=== PATIENT | female | born 1985 | race Caucasian/White ===

== ENCOUNTER 2017-01-08 12:38 | Emergency (ER) | payer OTHER ==
[2017-01-08 14:30] VITALS: BP 135/88
== END 2017-01-08 15:20 | disposition left against medical advice (07) ==
LOC: EDBD → ED 12:38
DX: R10.9 Unspecified abdominal pain (principal); Z53.21 Procedure and treatment not carried out due to patient leaving prior to being seen by health care provider

== ENCOUNTER 2017-02-19 11:52 | Emergency (ER) | payer OTHER ==
[2017-02-19] MEDS ORDERED: NS 0.9% 1000 ML* 2,000 ML IV ONE (12:23)
[2017-02-19] MEDS ORDERED: Ondansetron INJ* 2 MG/ML VIAL IV ONE ×2 (12:23→17:07)
[2017-02-19] MEDS ORDERED: Morphine INJ* 4 MG/ML 1 ML SYRINGE IV ONE ×2 (12:23→17:07)
[2017-02-19 12:48] LABS: Hematocrit 42 % (35-47); Hemoglobin 13.7 g/dl (12.0-16.0); Mean Corpuscular HGB Conc 33 g/dl (31-36); Mean Corpuscular Hemoglobin 28 pg (27-31); Mean Corpuscular Volume 85 fL (80-97); Mean Platelet Volume 9 um3 (7.4-10.4); Red Blood Count 4.93 10^6/ul (4.0-5.4); Red Cell Distribution Width 14 % (10.5-15)
[2017-02-19 13:07] LABS: ALT 9 U/L (7-52); Albumin 4.1 g/dL (3.2-5.2); Alkaline Phosphatase 67 U/L (34-104); BUN/Creatinine Ratio 14.7 (8-20); Blood Urea Nitrogen 11 mg/dL (6-24); C Reactive Protein 6.48 mg/L (< 5.00); CO2 Carbon Dioxide 16 mmol/L (22-32); Calcium 9.6 mg/dL (8.6-10.3); Chloride 111 mmol/L (101-111); Creatine Kinase 23 U/L (10-223); EGFR African American 115.2 (>60); EGFR Non-African American 89.6 (>60); Globulin 3.7 g/dL (2-4); Glucose 92 mg/dL (70-100); Lipase 12 U/L (11.0-82.0); Sodium 138 mmol/L (133-145); Total Protein 7.8 g/dL (6.4-8.9)
[2017-02-19 13:08] LABS: AST 10 U/L (13-39); Anion Gap 11 mmol/L (2-11); Potassium 3.5 mmol/L (3.5-5.0)
--- NOTE | 2017-02-19 13:28 | RAD ---
Indication: IV drug abuse with LEFT humerus level pain, redness, swelling with concern for abscess. Comparison: None. Technique: Ultrasound anterior aspect LEFT upper arm and antecubital region with Doppler REPORT AND IMPRESSION: Normal and subcutaneous edema present throughout. No loculated fluid collection evident to indicate abscess. Patency of the basilic vein, brachial vein, and brachial artery documented in the region of swelling.
[2017-02-19 13:37] LABS: TSH (Thyroid Stimulating Horm) 0.34 mcIU/mL (0.34-5.60)
[2017-02-19 13:39] LABS: Acetaminophen < 15 mcg/mL; Alcohol < 10 mg/dL (<10)
[2017-02-19] MEDS ORDERED: Clindamycin 600 MG IVPREMIX(* 600 MG/50 ML SDV IV ONE (14:13)
[2017-02-19] MEDS ORDERED: Iohexol 300* (CONTRAST) 10 ML SDV IV ONE (15:33)
--- NOTE | 2017-02-19 16:20 | RAD ---
CLINICAL HISTORY: Abdominal pain COMPARISON: October 07, 2016 TECHNIQUE: Multiple contiguous axial CT scans were obtained of the abdomen and pelvis after the administration of intravenous contrast. Coronal and sagittal multiplanar reformations are submitted for review. Oral contrast was administered. Delayed images were obtained through the abdomen and pelvis. FINDINGS: LUNG BASES: The lung bases are clear. LIVER: The liver is diffusely low in attenuation compared to the spleen. There are no focal hepatic parenchymal masses. Liver is mildly enlarged measuring 19 cm in long axis. BILE DUCTS: There is no intrahepatic or extrahepatic biliary dilatation. GALLBLADDER: The gallbladder is not visualized. Surgical clips are noted in the gallbladder fossa. PANCREAS: The pancreas is normal, without mass or ductal dilatation. SPLEEN: Normal in size and appearance. UPPER GI TRACT: Evaluation of the gastrointestinal tract is limited by incomplete gastric distention. The upper GI tract is unremarkable. SMALL BOWEL AND MESENTERY: The small bowel is normal in contour, course, and caliber. There is no obstruction or dilatation. COLON: The colon is normal in contour, course, caliber. There is no pericolonic inflammatory change. There is a tubular, vermiform, hollow viscus that is blind ending, and originates from the cecum, consistent with a normal appendix. There is no periappendiceal inflammatory change. This is best seen on axial images 50 through 59 ADRENALS: Normal bilaterally. KIDNEYS: There is a horseshoe kidney. There is no appreciable hydronephrosis or nephrolithiasis BLADDER: The bladder is collapsed and is not well evaluated PELVIC ORGANS: The uterus and adnexa are grossly normal for technique. AORTA: The aorta is normal. IVC: Unremarkable LYMPH NODES: There is no lymphadenopathy by size criteria. ABDOMINAL WALL: There is no evidence for abdominal wall hernia. BONES AND SOFT TISSUES: Unremarkable OTHER: None IMPRESSION: 1. HEPATOMEGALY WITH FATTY INFILTRATION OF THE LIVER. 2. PARTIALLY KIDNEY. 3. STATUS POST CHOLECYSTECTOMY. 4. NO ACUTE CT PATHOLOGY OF THE VISUALIZED ABDOMEN OR PELVIS
--- NOTE | 2017-02-19 17:12 | ED ---
Otf Christopher Adam, scribed for Jose Arizmendi MD on 02/19/17 at 1214 . Abdominal Pain/Female - HPI Summary HPI Summary: Pt is a 31 year old female presenting with abdominal pain. She states that the pain set on at 04:00 this morning. It is a 7/10 in severity and it is diffuse throughout her abdomen. She also reports multiple episodes of watery diarrhea since yesterday as well as vomiting which started 3 days ago and stopped yesterday. Pt also presents with 3 painful abscesses in the antecubital area of her left arm which developed 4 days ago. She denies fever and chills. Pt has a Hx of opiate abuse and she states that she last used IV drugs 4 days ago. She also takes Rx oxycodone and tizanidine. She denies being on any recent abx. PMHx of liver disease (chronically elevated LT's). Surgical Hx of choly and C- section. - History of Current Complaint Chief Complaint: EDAbdPain Stated Complaint: ABCESS, ON LEFT ARM , N/F/D Time Seen by Provider: 02/19/17 12:13 Hx Obtained From: Patient Hx Last Menstrual Period: three week ago Onset/Duration: Gradual Onset, Lasting Days, Still Present Timing: Constant Severity Initially: Moderate Severity Currently: Moderate Pain Intensity: 7 Pain Scale Used: 0-10 Numeric Location: Diffuse Radiates: No Aggravating Factor(s): Nothing Alleviating Factor(s): Nothing Associated Signs and Symptoms: Positive: Nausea, Vomiting, Diarrhea, Other: - Abscesses on left arm. Negative: Fever Allergies/Adverse Reactions: Allergies Allergy/AdvReac Type Severity Reaction Status Date / Time Amoxicillin Allergy Unknown Hives Verified 01/08/17 12:40 Azithromycin [From Zithromax] Allergy Unknown Hives Verified 01/08/17 12:40 Clarithromycin [From Biaxin] Allergy Unknown Hives Verified 01/08/17 12:40 Levofloxacin [From Levaquin] Allergy Unknown Hives Verified 01/08/17 12:40 Tramadol Allergy Unknown Hives Verified 01/08/17 12:40 Cefaclor [From Ceclor] Allergy Hives Verified 01/08/17 12:40 Codeine Allergy Hallucinati Verified 01/08/17 12:40 ons Doxycycline Allergy Hives Verified 01/08/17 12:40 Penicillins [PCN] Allergy Hives Verified 01/08/17 12:40 PMH/Surg Hx/FS Hx/Imm Hx Endocrine/Hematology History: Denies: Hx Diabetes, Hx Thyroid Disease Cardiovascular History: Denies: Hx Congestive Heart Failure, Hx Hypertension, Hx Pacemaker/ICD Respiratory History: Reports: Hx Asthma Denies: Hx Chronic Obstructive Pulmonary Disease (COPD) GI History: Denies: Hx Ulcer History: Denies: Hx Dialysis, Hx Renal Disease Musculoskeletal History: Denies: Hx Scoliosis Sensory History: Denies: Hx Hearing Aid Neurological History: Reports: Hx Headaches Psychiatric History: Reports: Hx Substance Abuse Denies: Hx Panic Disorder - Surgical History Surgery Procedure, Year, and Place: 3 C-SECTIONS, T&A, EAR TUBES, CHOLECYSTECTOMY, TUBAL LIGATION Infectious Disease History: No Infectious Disease History: Denies: Hx Clostridium Difficile, Hx Hepatitis, Hx Human Immunodeficiency Virus (HIV), Hx of Known/Suspected MRSA, Hx Shingles, History Other Infectious Disease, Traveled Outside the [place] in Last 30 Days - Family History Known Family History: Positive: None - R & n/c - Social History Occupation: Unemployed Lives: With Family - Friend male Alcohol Use: None Hx Substance Use: Yes Substance Use Type: Reports: Heroin, Prescribed - Opiates Hx Tobacco Use: Yes Smoking Status (MU): Heavy Every Day Tobacco Smoker Amount Used/How Often: 4 CIGARETTES Length of Time of Smoking/Using Tobacco: 11 YEARS Have You Smoked in the Last Year: Yes Review of Systems Negative: Fever, Chills Positive: Abdominal Pain, Vomiting, Diarrhea, Nausea Positive: Other - Painful abscesses on left arm All Other Systems Reviewed And Are Negative: Yes Physical Exam Triage Information Reviewed: Yes Vital Signs On Initial Exam: Initial Vitals Temp Pulse Resp BP Pulse Ox 97.1 F 78 16 111/68 100 02/19/17 11:57 02/19/17 11:57 02/19/17 11:57 02/19/17 11:57 02/19/17 11:57 Vital Signs Reviewed: Yes Appearance: Positive: Ill-Appearing - Mildly, Pain Distress - Mild Skin: Positive: Other - Several firm areas in the antecubital area with erythema Head/Face: Positive: Normal Head/Face Inspection Eyes: Positive: EOMI, ELIAS ENT: Positive: Normal ENT inspection Neck: Positive: Supple, Nontender Respiratory/Lung Sounds: Positive: Clear to Auscultation, Breath Sounds Present Cardiovascular: Positive: RRR Abdomen Description: Positive: Soft, Other: - Diffuse tenderness in the lower abdomen Bowel Sounds: Positive: Hypoactive Musculoskeletal: Positive: Normal, Strength/ROM Intact Neurological: Positive: Normal, Sensory/Motor Intact, Alert, Oriented to Person Place, Time Psychiatric: Positive: Affect/Mood Appropriate Diagnostics - Vital Signs Vital Signs Temp Pulse Resp BP Pulse Ox 02/19/17 11:57 97.1 F 78 16 111/68 100 - Laboratory Lab Results: Lab Results 02/19/17 02/19/17 02/19/17 Range/Units 12:30 12:30 12:30 WBC 9.0 (3.5-10.8) 10^3/ul RBC 4.93 (4.0-5.4) 10^6/ul Hgb 13.7 (12.0-16.0) g/dl Hct 42 (35-47) % MCV 85 (80-97) fL MCH 28 (27-31) pg MCHC 33 (31-36) g/dl RDW 14 (10.5-15) % Plt Count 340 (150-450) 10^3/ul MPV 9 (7.4-10.4) um3 Neut % (Auto) 65.9 (38-83) % Lymph % (Auto) 26.5 (25-47) % [place] % (Auto) 4.5 (1-9) % Eos % (Auto) 2.4 (0-6) % Baso % (Auto) 0.7 (0-2) % Absolute Neuts (auto) 5.9 (1.5-7.7) 10^3/ul Absolute Lymphs (auto) 2.4 (1.0-4.8) 10^3/ul Absolute Monos (auto) 0.4 (0-0.8) 10^3/ul Absolute Eos (auto) 0.2 (0-0.6) 10^3/ul Absolute Basos (auto) 0.1 (0-0.2) 10^3/ul Absolute Nucleated RBC 0.02 10^3/ul Nucleated RBC % 0.2 INR (Anticoag Therapy) 1.06 (0.89-1.11) APTT 30.8 (26.0-36.3) seconds Sodium 138 (133-145) mmol/L Potassium 3.5 (3.5-5.0) mmol/L Chloride 111 (101-111) mmol/L Carbon Dioxide 16 L (22-32) mmol/L Anion Gap 11 (2-11) mmol/L BUN 11 (6-24) mg/dL Creatinine 0.75 (0.51-0.95) mg/dL Est GFR ( Amer) 115.2 (>60) Est GFR (Non-Af Amer) 89.6 (>60) BUN/Creatinine Ratio 14.7 (8-20) Glucose 92 (70-100) mg/dL Lactic Acid (0.5-2.0) mmol/L Calcium 9.6 (8.6-10.3) mg/dL Total Bilirubin 0.70 (0.2-1.0) mg/dL AST 10 L (13-39) U/L ALT 9 (7-52) U/L Alkaline Phosphatase 67 (34-104) U/L Total Creatine Kinase 23 (10-223) U/L CK-MB (CK-2) 0.8 (0.6-6.3) ng/mL Troponin I 0.00 (<0.04) ng/mL C-Reactive Protein 6.48 H (< 5.00) mg/L Total Protein 7.8 (6.4-8.9) g/dL Albumin 4.1 (3.2-5.2) g/dL Globulin 3.7 (2-4) g/dL Albumin/Globulin Ratio 1.1 (1-3) Lipase 12 (11.0-82.0) U/L TSH 0.34 (0.34-5.60) mcIU/mL Acetaminophen < 15 mcg/mL Serum Alcohol < 10 (<10) mg/dL 02/19/17 Range/Units 12:30 WBC (3.5-10.8) 10^3/ul RBC (4.0-5.4) 10^6/ul Hgb (12.0-16.0) g/dl Hct (35-47) % MCV (80-97) fL MCH (27-31) pg MCHC (31-36) g/dl RDW (10.5-15) % Plt Count (150-450) 10^3/ul MPV (7.4-10.4) um3 Neut % (Auto) (38-83) % Lymph % (Auto) (25-47) % [place] % (Auto) (1-9) % Eos % (Auto) (0-6) % Baso % (Auto) (0-2) % Absolute Neuts (auto) (1.5-7.7) 10^3/ul Absolute Lymphs (auto) (1.0-4.8) 10^3/ul Absolute Monos (auto) (0-0.8) 10^3/ul Absolute Eos (auto) (0-0.6) 10^3/ul Absolute Basos (auto) (0-0.2) 10^3/ul Absolute Nucleated RBC 10^3/ul Nucleated RBC % INR (Anticoag Therapy) (0.89-1.11) APTT (26.0-36.3) seconds Sodium (133-145) mmol/L Potassium (3.5-5.0) mmol/L Chloride (101-111) mmol/L Carbon Dioxide (22-32) mmol/L Anion Gap (2-11) mmol/L BUN (6-24) mg/dL Creatinine (0.51-0.95) mg/dL Est GFR ( Amer) (>60) Est GFR (Non-Af Amer) (>60) BUN/Creatinine Ratio (8-20) Glucose (70-100) mg/dL Lactic Acid 0.8 (0.5-2.0) mmol/L Calcium (8.6-10.3) mg/dL Total Bilirubin (0.2-1.0) mg/dL AST (13-39) U/L ALT (7-52) U/L Alkaline Phosphatase (34-104) U/L Total Creatine Kinase (10-223) U/L CK-MB (CK-2) (0.6-6.3) ng/mL Troponin I (<0.04) ng/mL C-Reactive Protein (< 5.00) mg/L Total Protein (6.4-8.9) g/dL Albumin (3.2-5.2) g/dL Globulin (2-4) g/dL Albumin/Globulin Ratio (1-3) Lipase (11.0-82.0) U/L TSH (0.34-5.60) mcIU/mL Acetaminophen mcg/mL Serum Alcohol (<10) mg/dL Result Diagrams: 02/19/17 12:30 02/19/17 12:30 Lab Statement: Any lab studies that have been ordered have been reviewed, and results considered in the medical decision making process. - CT A/P CT Interpretation Completed By: Radiologist - IMPRESSION: 1. HEPATOMEGALY WITH FATTY INFILTRATION OF THE LIVER. 2. PARTIALLY KIDNEY. 3. STATUS POST CHOLECYSTECTOMY. 4. NO ACUTE CT PATHOLOGY OF THE VISUALIZED ABDOMEN OR PELVIS - Additional Comments Diagnostic Additional Comments: Soft Tissue Ultrasound - REPORT AND IMPRESSION: Normal and subcutaneous edema present throughout. No loculated fluid collection evident to indicate abscess. Patency of the basilic vein, brachial vein, and brachial artery documented in the region of swelling. Troponin I - 0.00 Abdominal Pain Fem Course/Dx - Course Course Of Treatment: WELL IN ED. DISCUSSED RESULTS WITH PATTIENT. WILL TREAT ARM WITH CLINDAMYCIN. RX ZOFRAN ALSO. DISCHARGE HOME STABLE. - Diagnoses Provider Diagnoses: Cellulitis, Abdominal pain Discharge - Discharge Plan Condition: Stable Disposition: HOME Prescriptions: Clindamycin Cap(NF) [Cleocin 300 mg Cap(NF)] 300 mg PO Q6H #40 cap Ondansetron ODT TAB* [Zofran 4 MG Odt TAB*] 4 mg PO Q6H PRN #10 tab.odt PRN Reason: Nausea Patient Education Materials: Cellulitis (ED), Abdominal Pain (ED) Referrals: Jerald Healy MD [Primary Care Provider] - Additional Instructions: FOLLOW UP WITH YOUR DOCTOR. RETURN TO THE EMERGENCY DEPARTMENT FOR ANY WORSENING OF YOUR CONDITION; PAIN, FEVER, YOU FEEL ILL OR QUESTIONS OR CONCERNS. The documentation as recorded by the Ot[facility] solorio Adam accurately reflects the service I personally performed and the decisions made by me, Jose Arizmendi MD.
[2017-02-19 17:36] VITALS: BP 143/65
== END 2017-02-19 17:34 | disposition home or self-care (01) ==
LOC: ED 11:52
DX: R10.9 Unspecified abdominal pain (principal); L03.90 Cellulitis, unspecified; Z90.49 Acquired absence of other specified parts of digestive tract; R11.2 Nausea with vomiting, unspecified; R19.7 Diarrhea, unspecified
CPT/HCPCS: 36415; 74177; 80053; 80320; 80329; 82550; 82553; 83605; 83690; 84443; 84484; 85025; 85610; 85730; 86140; 87040; 99283; G0480; J2270; J2405; Q9967